=== PATIENT | female | born 1950 ===

== ENCOUNTER 2017-07-14 20:21 | Emergency (ER) | payer MEDICARE ==
[2017-07-14 20:49] VITALS: TEMP 98.3
[2017-07-14] MEDS ORDERED: Sodium Chloride 0.9% 1,000 ML IV STA (21:39)
[2017-07-14] MEDS ORDERED: Alum-Mag Hydrox-Simethicone Susp (30 mL) PO STA (21:39)
--- NOTE | 2017-07-14 21:45 | C.PDOC ---
History Of Present Illness 67 year old female with a Hx of anemia who presents to the ER with a complaint of abdominal pain and distention for the past year, associated with occasional nausea, vomiting, and dizziness for the past few weeks. Patient states she was found to have a blood in her stool in September of last year and was advised to have a colonoscopy done but never followed up. Patient describes the dizziness as feeling like she is "on a boat" with spinning, intermittent, sometimes associated with nausea. Denies fever, chills, or diarrhea. Time Seen by Provider: 07/14/17 21:28 Chief Complaint (Nursing): Abdominal Pain History Per: Patient History/Exam Limitations: no limitations Onset/Duration Of Symptoms: Days, Worse Since (Today) Current Symptoms Are (Timing): Still Present Location Of Pain/Discomfort: Diffuse Radiation Of Pain To:: None Quality Of Discomfort: Unable To Describe Associated Symptoms: Nausea, Vomiting. denies: Fever, Chills, Diarrhea Exacerbating Factors: None Alleviating Factors: None Recent travel outside of the [place]: No Past Medical History Reviewed: Historical Data, Nursing Documentation, Vital Signs Vital Signs: Last Vital Signs Temp 98.3 F 07/14/17 20:44 Pulse 89 07/15/17 00:25 Resp 18 07/15/17 00:25 BP 127/88 07/15/17 00:25 Pulse Ox 99 07/15/17 00:25 - Medical History PMH: Anemia, Asthma Surgical History: No Surg Hx Family History: States: Unknown Family Hx - Social History Hx Alcohol Use: No Hx Substance Use: No - Immunization History Hx Tetanus Toxoid Vaccination: No Hx Influenza Vaccination: No Hx Pneumococcal Vaccination: No Review Of Systems Except As Marked, All Systems Reviewed And Found Negative. Constitutional: Negative for: Fever Gastrointestinal: Positive for: Nausea, Vomiting, Abdominal Pain. Negative for : Diarrhea Neurological: Positive for: Dizziness Physical Exam - Physical Exam Additional Physical Exam Comments: Constitutional: No acute distress. Head: Normocephalic. Atraumatic. Eyes: PERRL. EOMI. ENT: Moist mucous membranes. Neck: Supple. Cardiovascular: Regular rate. Radial pulses 2+ bilaterally. Chest: No tenderness. Respiratory: Clear to auscultation bilaterally. GI: Soft. Nontender. Nondistended. Back: No CVA tenderness. Musculoskeletal: No tenderness or swelling of extremities. Skin: No rash. Neurologic: Normal finger to nose test. Normal heel to aguilar test. Romberg negative. ED Course And Treatment - Laboratory Results Result Diagrams: 07/14/17 21:49 07/14/17 21:49 O2 Sat by Pulse Oximetry: 100 (room air) Pulse Ox Interpretation: Normal Medical Decision Making Medical Decision Making: Plan: * Blood work * Urine cultures * Urinalysis * Maalox * Pepcid * Zofran * IV fluids No anemia on evaluation. I encouraged patient to follow up with primary care and with GI for colonscopy. She states she will go as soon as possible. Otherwise, no further ER evaluation indicated. Disposition - Disposition Disposition: HOME/ ROUTINE Disposition Time: 23:52 Condition: STABLE Prescriptions: Famotidine/Ca Carb/Mag Hydrox [Pepcid Complete Tablet Chew] 1 each PO BID #28 tab.chew Meclizine [Antivert] 25 mg PO TID PRN #20 tab PRN Reason: Dizziness Instructions: Colonoscopy (GEN) Forms: [employer] ([place]vian) - Clinical Impression Clinical Impression: Abdominal bloating - Scribe Statement The provider has reviewed the documentation as recorded by the Scribtheresa Medina All medical record entries made by the Scribe were at my direction and personally dictated by me. I have reviewed the chart and agree that the record accurately reflects my personal performance of the history, physical exam, medical decision making, and the department course for this patient. I have also personally directed, reviewed, and agree with the discharge instructions and disposition.
[2017-07-14 21:57] LABS: BASO # 0.1 K/uL (0.0-0.2); BASO % 0.8 % (0.0-2.0); EOS # 0.2 K/uL (0.0-0.7); EOS % 2.8 % (0.0-4.0); HEMATOCRIT 34.5 % (34.0-47.0); LYMPH # 1.6 K/uL (1.0-4.3); MEAN CELL VOLUME 116.7 fL (81.0-99.0); MEAN CORPUSCULAR HEMOGLOBIN 41.3 pg (27.0-31.0); MEAN CORPUSCULAR HGB CONC 35.3 g/dL (33.0-37.0); MEAN PLATELET VOLUME 7.3 fL (7.2-11.7); MONO # 0.3 K/uL (0.0-0.8); MONO % 5.8 % (0.0-10.0); NRBC % 0.2 % (0.0-2.0); RED CELL DISTRIBUTION WIDTH 14.8 % (11.5-14.5)
[2017-07-14 22:06] LABS: CHLORIDE 102 mmol/L (98-107); POTASSIUM 4.1 mmol/L (3.6-5.2); SODIUM 134 mmol/L (132-148)
[2017-07-14 22:08] LABS: ALB/GLOB RATIO 1.2 (1.0-2.1); ALKALINE PHOSPHATASE 73 U/L (38-126); AST/SGOT 20 U/L (14-36); BILIRUBIN,TOTAL 0.6 mg/dL (0.2-1.3); CARBON DIOXIDE 23 mmol/L (22-30); GFR AFRICAN-AMERICAN > 60
[2017-07-14 22:09] LABS: ALT/SGPT 26 U/L (9-52); BLOOD UREA NITROGEN 15 mg/dL (7-17); CALCIUM 8.4 mg/dl (8.6-10.4); GLUCOSE,RANDOM 118 mg/dL (65-105); RBC URINE 3 /hpf (0-3); URINE BACTERIA RARE (<OCC); URINE BILIRUBIN NEGATIVE (NEGATIVE); URINE BLOOD NEGATIVE (NEGATIVE); URINE COLOR Yellow (YELLOW); URINE GLUCOSE (UA) NORMAL (Normal); URINE KETONE NEGATIVE (NEGATIVE); URINE LEUKOCYTE ESTERASE 1+ Leu/uL (Negative); URINE PROTEIN NEGATIVE (NEGATIVE); WBC URINE 5 /hpf (0-5)
[2017-07-14] MEDS ORDERED: Sodium Chloride 0.9% 1,000 ML ONE (22:11)
[2017-07-14] MEDS ORDERED: Aluminum Hydroxide/Magnesium Hydroxide Susp (30 mL) ONE (22:12)
[2017-07-15 00:26] VITALS: BP 127/88; PULSE 89; RESP 18
[2017-07-15 02:13] VITALS: O2SAT 100
== END 2017-07-15 00:27 | disposition home or self-care (01) ==
LOC: C.ER 20:21
DX: R14.0 Abdominal distension (gaseous) (principal)
CPT/HCPCS: 80053; 81001; 83690; 85025; 85610; 85730; 86850; 86900; 87086; 96361; 96374; 96375; 99285; J2405; J7040